=== PATIENT | male | born 1940 | race Asian ===

== ENCOUNTER 2017-09-30 10:10 | Inpatient (IN) | payer OTHER ==
[~2017-09-30] VITALS: Ht 170.2 cm; Wt 56.4 kg
[2017-09-30 10:21] VITALS: Ht 170.2 cm; Wt 56.4 kg
[2017-09-30 11:00] LABS: BASOPHIL % 0.5 % (0-2); PLATELET COUNT 175 x10^3mcL (130-400)
[2017-09-30 11:12] LABS: CALCIUM 8.4 mg/dL (8.5-10.1); CARBON DIOXIDE 29.9 mmol/L (21-32); CHLORIDE SERUM 98 mmol/L (98-107); CREATININE SERUM 0.9 mg/dL (0.7-1.3); GLUCOSE SERUM 132 mg/dL (74-106); POTASSIUM SERUM 4.1 mmol/L (3.5-5.1); SODIUM SERUM 138 mmol/L (136-145)
[2017-09-30 11:17] LABS: ALBUMIN 3.7 g/dL (3.4-5.0); ALKALINE PHOSPHATASE 51 U/L (46-116); ALT/SGPT 20 U/L (16-63); AST/SGOT 20 U/L (15-37); BILIRUBIN TOTAL 0.5 mg/dL (0.20-1.00); HDL CHOLESTEROL 59 mg/dL (40-60); PHOSPHOROUS 2.9 mg/dL (2.5-4.9); TOTAL PROTEIN, SERUM 7.4 g/dL (6.4-8.2); URIC ACID 4.3 mg/dL (3.5-7.2)
[2017-09-30 11:18] LABS: CHOLESTEROL 133 mg/dL (<200)
[2017-09-30] MEDS ORDERED: PROTONIX20 MG PO (12:44)
[2017-09-30] MEDS ORDERED: SIMVASTATIN10 M1 PO (12:44)
[2017-09-30] MEDS ORDERED: RESTORIL15 MG PO (12:44)
[2017-09-30] MEDS ORDERED: NOR10 PO (12:44)
[2017-09-30] MEDS ORDERED: CARDURA4 MG PO (12:45)
[2017-09-30] MEDS ORDERED: FLOMAX0.4 MG PO (12:46)
[2017-09-30] MEDS ORDERED: CATAPRES0.1 MG PO (12:46)
[2017-09-30] MEDS ORDERED: NAMZARIC PO (12:47)
[2017-09-30] MEDS ORDERED: XALATAN2.5 ML OU (12:48)
[2017-09-30 13:02] LABS: CHOLESTEROL/HDL RATIO 2.4
[2017-09-30 13:09] LABS: FREE T4 0.89 ng/dL (0.76-1.46); T3 TOTAL 0.74 ng/mL; T4(THYROXINE) 5.9 ug/dL (4.7-13.3)
[2017-09-30 13:55] VITALS: BP 139/84
[2017-09-30 17:59] VITALS: BP 126/88
[2017-09-30 19:18] LABS: microscopic required? YES; urine erythrocyte TRACE (NEGATIVE)
[2017-09-30 20:58] VITALS: BP 142/82
[2017-10-01 05:43] VITALS: BP 114/69
[2017-10-01 07:02] LABS: BASOPHIL % 0.4 % (0-2); PLATELET COUNT 156 x10^3mcL (130-400); RED CELL DISTRIBUTION WIDTH 13.9 % (11.5-14.5)
[2017-10-01 07:37] LABS: CALCIUM 8.1 mg/dL (8.5-10.1); CARBON DIOXIDE 23.7 mmol/L (21-32); CHLORIDE SERUM 107 mmol/L (98-107); CREATININE SERUM 0.9 mg/dL (0.7-1.3); GLUCOSE SERUM 118 mg/dL (74-106); MAGNESIUM 2.2 mg/dL (1.8-2.4); PHOSPHOROUS 3.1 mg/dL (2.5-4.9); POTASSIUM SERUM 3.6 mmol/L (3.5-5.1); SODIUM SERUM 143 mmol/L (136-145)
[2017-10-01 09:08] VITALS: BP 140/50
[2017-10-01] MEDS ORDERED: APAP/HYDROCODON1 T13 PO (12:50)
[2017-10-01 13:55] VITALS: BP 140/50
== END 2017-10-01 18:22 | disposition home or self-care (01) | DRG 562 ==
LOC: ED 10:10 → DU 12:10 → MU 12:10 → DU 12:57 → MU 12:59
PROVIDERS: Emergency Medicine; Family Medicine
DX: S92.144A Nondisplaced dome fracture of right talus, initial encounter for closed fracture (principal); G92 Toxic encephalopathy; R55 Syncope and collapse; S82.899A Other fracture of unspecified lower leg, initial encounter for closed fracture; K29.70 Gastritis, unspecified, without bleeding; K21.9 Gastro-esophageal reflux disease without esophagitis; F03.90 Unspecified dementia, unspecified severity, without behavioral disturbance, psychotic disturbance, mood disturbance, and anxiety; E83.51 Hypocalcemia; I10 Essential (primary) hypertension; E78.5 Hyperlipidemia, unspecified; R73.03 Prediabetes; H40.9 Unspecified glaucoma; N40.0 Benign prostatic hyperplasia without lower urinary tract symptoms; Z68.22 Body mass index [BMI] 22.0-22.9, adult; X50.1XXA Overexertion from prolonged static or awkward postures, initial encounter; Y93.89 Activity, other specified; Y92.9 Unspecified place or not applicable; Y99.8 Other external cause status
CPT/HCPCS: 83880; 84439; 97110-GP; 97535-GP; J7030; J8597; Q0092